=== PATIENT | female | born 1990 | race Caucasian/White ===

== ENCOUNTER 2023-02-23 17:07 | Inpatient (IN) | payer OTHER ==
[~2023-02-23] VITALS: Ht 160 cm; Wt 57.6 kg
[2023-02-23 17:15] VITALS: BP 106/65
--- NOTE | 2023-02-23 17:15 | NUR ---
PATIENT BIBA TO BED 12.
[2023-02-23] MEDS ORDERED: NACL 0.9% 1,000 ML IV ONE (17:25)
--- NOTE | 2023-02-23 17:42 | NUR ---
patient is confused. unable to obtain any medical history. patient vomited during transport to the hospital. changed patient to hospital gown.
[2023-02-23] MEDS ORDERED: LORazepam 2 MG/ML VIAL ONE (18:03)
[2023-02-23] MEDS ORDERED: levETIRAcetam 1,000 MG in NACL 0.9% 100 ML IV ONE (18:10)
[2023-02-23] MEDS ORDERED: LORazepam 2 MG/ML VIAL IVP ONE (18:10)
--- NOTE | 2023-02-23 18:11 | NUR ---
patient is actively having seizure. Ativan given as ordered. safety measures maintained. will continue to monitor.
[2023-02-23] MEDS ORDERED: levETIRAcetam 100 MG/ML VIAL IV ONE (18:13)
[2023-02-23 18:14] LABS: BASOPHILS % (AUTO) 0.6 % (0.0-2.0); EOSINOPHILS % (AUTO) 0.2 % (0.0-4.0); HEMATOCRIT 38.2 % (36-48); HEMOGLOBIN 13.1 g/dL (12.0-16.0); LYMPHOCYTES % (AUTO) 14.7 % (20.5-51.1); MEAN CORPUSCULAR HEMOGLOBIN 32 pg (27-31); MEAN CORPUSCULAR HGB CONC 34 g/dL (33-37); MEAN CORPUSCULAR VOLUME 92.7 fL (80-94); MONOCYTES # (AUTO) 0.2 K/uL (0.8-1.0); MONOCYTES % (AUTO) 2.7 % (1.7-9.3); NEUTROPHILS # (AUTO) 5.8 K/uL (1.8-7.7); NEUTROPHILS % (AUTO) 81.8 % (42.2-75.2); PLATELET COUNT (AUTO) 205 K/uL (140-450); RED BLOOD CELL COUNT(AUTO) 4.12 MIL/uL (4.20-5.40); RED CELL DISTRIBUTION WIDTH 12.1 % (11.6-13.7); WHITE BLOOD COUNT (AUTO) 7.1 K/uL (4.8-10.8)
--- NOTE | 2023-02-23 18:40 | NUR ---
patient transported to CT
[2023-02-23 18:51] LABS: ALBUMIN 4.1 g/dL (3.4-5.0); ANION GAP 15.4 (8-16); ASPARTATE AMINOTRANSFERASE 17 U/L (15-37); CARBON DIOXIDE 27.2 mmol/L (21-32); CHLORIDE 105 mmol/L (98-107); CREATININE 0.9 mg/dL (0.6-1.3); GFR ARICAN-AMERICAN 94 mL/min (>90); GLUCOSE 153 mg/dL (74-106); MAGNESIUM 1.8 mg/dL (1.8-2.4); PHOSPHORUS 2.9 mg/dL (2.5-4.9); POTASSIUM 3.6 mmol/L (3.5-5.1); SALICYLATE < 2.8 mg/dL (2.8-20.0); SODIUM SERUM 144 mmol/L (136-145); TOTAL BILIRUBIN 0.3 mg/dL (0.0-1.0); UREA NITROGEN, BLOOD 10 mg/dL (7-18)
--- NOTE | 2023-02-23 18:51 | NUR ---
patient back from CT. stable at this time.
--- NOTE | 2023-02-23 19:30 | NUR ---
Patient received on bed lying comfortably and asleep. No acute distress. No signs of pain or discomfort. Respirations even and unlabored. Patient on seizure precautions.
[2023-02-23] MEDS ORDERED: ACETAMINOPHEN 325 MG TAB PO PRN (21:25)
[2023-02-23] MEDS ORDERED: ONDANSETRON 4 MG/2 ML VIAL IVP PRN (21:25)
[2023-02-23] MEDS ORDERED: LORazepam 2 MG/ML VIAL IVP PRN (21:25)
[2023-02-23] MEDS ORDERED: MORPHINE SULFATE 2 MG/ML SYR IVP PRN (21:25)
[2023-02-23] MEDS: DEXT 5% /NACL 0.9% 1,000 ML IV SCH (22:01)
[2023-02-23 22:30] LABS: APPEARANCE,URINE HAZY (CLEAR); BILIRUBIN,URINE NEGATIVE (NEGATIVE); BLOOD, URINE NEGATIVE (NEGATIVE); COLOR,URINE YELLOW (YELLOW); LEUKOCYTE ESTERASE ,URINE 1+ (NEGATIVE); NITRITE, URINE NEGATIVE (NEGATIVE); UGLUCOSE NEGATIVE (NEGATIVE)
[2023-02-23 22:58] LABS: RBC,URINE 0-5 /HPF (0-5)
[2023-02-24] MEDS: PANTOPRAZOLE 40 MG TABEC PO SCH (06:56)
[2023-02-24] MEDS ORDERED: LEVE750T3 PO (07:07)
[2023-02-24] MEDS ORDERED: LEVE1000 PO (07:07)
[2023-02-24 07:19] LABS: BASOPHILS % (AUTO) 0.5 % (0.0-2.0); EOSINOPHILS # (AUTO) 0.1 K/uL (0-0.4); EOSINOPHILS % (AUTO) 0.7 % (0.0-4.0); HEMATOCRIT 33.2 % (36-48); HEMOGLOBIN 11.5 g/dL (12.0-16.0); LYMPHOCYTES # (AUTO) 2.9 K/uL (2.5-16.5); LYMPHOCYTES % (AUTO) 32.3 % (20.5-51.1); MEAN CORPUSCULAR HEMOGLOBIN 32 pg (27-31); MEAN CORPUSCULAR HGB CONC 35 g/dL (33-37); MEAN CORPUSCULAR VOLUME 92.2 fL (80-94); MONOCYTES # (AUTO) 0.6 K/uL (0.8-1.0); MONOCYTES % (AUTO) 6.5 % (1.7-9.3); NEUTROPHILS # (AUTO) 5.4 K/uL (1.8-7.7); PLATELET COUNT (AUTO) 182 K/uL (140-450); RED CELL DISTRIBUTION WIDTH 12.2 % (11.6-13.7); WHITE BLOOD COUNT (AUTO) 8.9 K/uL (4.8-10.8)
--- NOTE | 2023-02-24 07:42 | NUR ---
pt aox4 gcs 15, reports headache 5/10 no other complaints. vss.
[2023-02-24 07:43] LABS: ALBUMIN 3.3 g/dL (3.4-5.0); ANION GAP 11.4 (8-16); CARBON DIOXIDE 27.2 mmol/L (21-32); CREATININE 0.8 mg/dL (0.6-1.3); MAGNESIUM 2.1 mg/dL (1.8-2.4); POTASSIUM 3.6 mmol/L (3.5-5.1); TOTAL BILIRUBIN 0.6 mg/dL (0.0-1.0)
--- NOTE | 2023-02-24 08:50 | NUR ---
Patient will be admitted to care of carlos. Admited to tele. Will go to room 106b. Belongings list completed. Report to luisa brenner.
[2023-02-24] MEDS ORDERED: levETIRAcetam 1,000 MG in NACL 0.9% 100 ML IV SCH (09:00)
--- NOTE | 2023-02-24 09:12 | NUR ---
PATIENT HAS BEEN SCREENED AND CATEGORIZED MODERATE NUTRITION RISK. PATIENT WILL BE SEEN WITHIN 3-5 DAYS OF ADMISSION. 02/23/23-02/28/[address]
[2023-02-24] MEDS: DEXT 5% /NACL 0.9% 1,000 ML IV SCH (09:36)
--- NOTE | 2023-02-24 10:30 | NUR ---
admitted the patient from the emergency room from luisa Galvan . in rm 106B aox4 with admitting diagnosis seizure . will continue to monitor
[2023-02-24 12:00] VITALS: BP 128/85
[2023-02-24] MEDS ORDERED: levETIRAcetam 500 MG TAB PO SCH (13:15)
[2023-02-24 16:00] VITALS: BP 132/72
--- NOTE | 2023-02-24 16:30 | NUR ---
submitted MRSA specimen to the laboratory as protocol .
--- NOTE | 2023-02-24 16:50 | NUR ---
order from Md Hinojosa for a regular diet for the patient
--- NOTE | 2023-02-24 18:37 | NUR ---
will endorse to assistant shift supervisor rn for continuity of care . will continue with keppra to prevent seizure , continue anti biotics
[2023-02-24 20:00] VITALS: BP 110/60
[2023-02-24] MEDS: levETIRAcetam 500 MG TAB PO SCH (20:58)
[2023-02-25] VITALS: BP 112/65
--- NOTE | 2023-02-25 | NUR ---
rounds , no s/sx of acute distress noted , will cont. to monitor
[2023-02-25] MEDS: DEXT 5% /NACL 0.9% 1,000 ML IV SCH (00:05)
--- NOTE | 2023-02-25 02:00 | NUR ---
sleeping , call light within reach
[2023-02-25 02:30] LABS: BARBITURATE, URINE NEGATIVE ng/ml (NEG <=200); BENZODIAZEPINE, URINE POSITIVE ng/mL (NEG <=200); CANNABINOID, URINE POSITIVE ng/mL (NEG <=50); COCAINE, URINE NEGATIVE ng/mL (NEG <=300); OPIATE, URINE NEGATIVE ng/mL (NEG <=2000); PHENCYCLIDINE SCREEN,URINE NEGATIVE ng/mL (NEG <=25)
[2023-02-25 04:00] VITALS: BP 118/68
--- NOTE | 2023-02-25 04:00 | NUR ---
ROUNDS , NO S/SX OF ACUTE DISTRESS NOTED .
--- NOTE | 2023-02-25 06:00 | NUR ---
AWAKE , NO COMPLAIN MADE . , CALL LIGHTN WITHIN REACH
--- NOTE | 2023-02-25 07:07 | NUR ---
receive the patient from the welder 2nd shift rn in rm 106B aox4 with admitting diagnosis of seizure . on keppra , antibiotics . no episode of seizure at this time . will continue to monitor .
[2023-02-25] MEDS: PANTOPRAZOLE 40 MG TABEC PO SCH (07:19)
--- NOTE | 2023-02-25 07:35 | NUR ---
ENDORSED FOR CONT. FOR CARE
[2023-02-25] MEDS: levETIRAcetam 500 MG TAB PO SCH (08:40)
[2023-02-25] MEDS ORDERED: LEVE750T25 PO (08:53)
[2023-02-25] MEDS ORDERED: CEFD300C3 PO (08:53)
[2023-02-25] MEDS ORDERED: NIFEdipine 60 MG TABER PO SCH (09:00)
--- NOTE | 2023-02-25 09:10 | NUR ---
patient has episode of high blood pressure. Md Alvarez made aware. prescribe nifedipine . noted and carried out
[2023-02-25 11:30] VITALS: BP 118/68
--- NOTE | 2023-02-25 14:15 | NUR ---
made discharge patient teaching . remove iv line , identification band . discontinue also heart monitor . patient in a stable condition . no sign and symptoms of respiratory failure . no complain of pain at this time . brought to the lobby thru a wheelchair to a waiting private car with friend
--- NOTE | 2023-02-28 12:06 | NUR ---
CALLED DR [facility] [place] [address] [facility] [address] [facility] [address]. SPOKE WITH RENETTA WHO WAS ABLE TO HELP ME SCHEDULE A FOLLOW UP APPOINTMENT FOR 03/11/2023 AT 1030. CALLED PATIENT AT WHO DIDN'T ANSWER BUT I WAS ABLE TO LEAVE A MESSAGE FOR PATIENT REGARDING THE ABOVE INFORMATION.
== END 2023-02-25 13:29 | disposition home or self-care (01) | DRG 53 ==
LOC: MED 17:07 → MMU 21:27 → MTU 02-24 06:24
PROVIDERS: ADMIT Internal Medicine; ATTEND Internal Medicine
DX: G40.909 Epilepsy, unspecified, not intractable, without status epilepticus (principal); N39.0 Urinary tract infection, site not specified; Z20.822 Contact with and (suspected) exposure to COVID-19; S00.83XA Contusion of other part of head, initial encounter; W18.39XA Other fall on same level, initial encounter; Z59.00 Homelessness unspecified; Y93.89 Activity, other specified; Y92.89 Other specified places as the place of occurrence of the external cause; Y99.8 Other external cause status; Z79.899 Other long term (current) drug therapy
CPT/HCPCS: 36415; 70450; 80053; 80305; 81001; 82550; 83735; 84100; 84484; 84703; 85025; 87081; 87086; 93005; 95816; 96361; 96374; 96375; 99291; G0480; G0482; J0696; J1953; J2060; J7060